=== PATIENT | male | born 1970 | race Caucasian/White ===

== ENCOUNTER 2024-06-09 14:44 | Emergency (ER) | payer MEDICAID, SELFPAY ==
[2024-06-09 14:51] VITALS: BP 156/95; PULSE 86; TEMP 36.7; O2SAT 97; BMI 27.4
--- NOTE | 2024-06-09 15:07 | ED_ITS ---
HPI - URI/Sore Throat General Chief Complaint: Upper Respiratory Infection Stated Complaint: FLU SYMPTOMS Time Seen by Provider: 06/09/24 14:49 Source: patient Limitations: no limitations History of Present Illness HPI Narrative: Patient is a 54-year-old male with no major medical problems who presents to the ER for continued influenza symptoms. He was diagnosed 3 days ago at urgent care with influenza A. He states he has been sick for the last 6 days. He does not have an appetite and has not been eating very much but he has been drinking fluids with no vomiting. Diarrhea several days ago has now resolved. He reports body aches, cough and congestion. He was prescribed Tamiflu which he has been taking but states he does not feel it has made his symptoms any better. Related Data Home Medications ?Medication ?Instructions ?Recorded ?Confirmed oseltamivir 75 mg capsule 75 mg PO DAILY 06/09/24 06/09/24 Previous Rx's ?Medication ?Instructions ?Recorded lvpwlffnunetoby-xwippoaazqqepyq-NV 10 ml PO Q6H PRN cold symptoms 06/09/24 2 mg-30 mg-10 mg/5 mL oral syrup #200 mL (Bromfed DM) ondansetron 4 mg disintegrating 4 mg PO Q6H PRN nausea and 06/09/24 tablet vomiting #12 tabs Allergies Allergy/AdvReac Type Severity Reaction Status Date / Time No Known Drug Allergies Allergy Verified 06/09/24 14:51 Review of Systems ROS Constitutional Reports: fever and chills Ears, nose, mouth, and throat Reports: throat pain and nasal congestion Respiratory Reports: cough; Denies: shortness of breath Gastrointestinal Reports: nausea and diarrhea; Denies: vomiting Integumentary/Breast Denies: rash Hematologic/Lymphatic Denies: easy bruising or easy bleeding PFSH [facility] Social History Little interest or pleasure in doing things: not at all Feeling down, depressed, or hopeless: not at all Exam Narrative Exam Narrative: Gen.: Awake, alert, in no distress Head: Normocephalic, atraumatic ENT: Moist mucous membranes, bilateral TMs clear, no pharyngeal erythema with uvula midline. Normal speech. Respiratory: No respiratory distress, lungs clear bilaterally, no wheezing or rhonchi. No coughing noted Cardio: Regular rate and rhythm Gastrointestinal: Abdomen is soft, nondistended and nontender to palpation Extremities: Moves extremities equally Psych: Normal mood and affect Neuro: No focal neuro deficit Skin: Warm, dry, intact Constitutional Vital Signs, click to edit/add: Last Vital Signs Temp 98.1 F 06/09/24 14:51 Pulse 86 06/09/24 14:51 Resp 20 06/09/24 14:51 BP 156/95 H 06/09/24 14:51 Pulse Ox 97 06/09/24 14:51 O2 Del Method Room Air 06/09/24 14:51 Course Vital Signs Vital signs: Vital Signs Temperature 98.1 F 06/09/24 14:51 Pulse Rate 86 06/09/24 14:51 Respiratory Rate 20 06/09/24 14:51 Blood Pressure 156/95 H 06/09/24 14:51 Pulse Oximetry 97 06/09/24 14:51 Oxygen Delivery Method Room Air 06/09/24 14:51 Temperature 98.1 F 06/09/24 14:51 Pulse Rate 86 06/09/24 14:51 Respiratory Rate 20 06/09/24 14:51 Blood Pressure 156/95 H 06/09/24 14:51 Pulse Oximetry 97 06/09/24 14:51 Oxygen Delivery Method Room Air 06/09/24 14:51 MDM - URI/Sore Throat MDM Narrative Medical decision making narrative: This patient is in no distress with stable vital signs. He is experiencing the expected duration of influenza course of illness. He was given education and reassurance that the Tamiflu does not treat his symptoms but might shorten the course of his illness by 36 to 48 hours. He should increase fluids, continue Motrin and Tylenol. He was given Bromfed-DM and Zofran for symptoms at home as well as Decadron in the ER for sore throat. He has already been swabbed negative for COVID and strep. Work note provided. Return to the ER if symptoms change or worsen. SUPERVISED APC VISIT, PHYSICIAN ATTESTATION: Based on the medical record the care appears appropriate. ? Medical Records Attestation: I reviewed the patient's medical records. Discharge Plan Discharge Chief Complaint: Upper Respiratory Infection Clinical Impression: Influenza Patient Disposition: Home, Self-Care Time of Disposition Decision: 15:05 Condition: Good Prescriptions / Home Meds: New cubbwefggyouwow-cprmfhbik-TL [Bromfed DM] 2-30-10 mg/5 mL syrup 10 ml PO Q6H PRN (Reason: cold symptoms) Qty: 200 0RF ondansetron 4 mg tablet,disintegrating 4 mg PO Q6H PRN (Reason: nausea and vomiting) Qty: 12 0RF No Action oseltamivir 75 mg capsule 75 mg PO DAILY Print Language: German Instructions: Influenza (ED) Referrals: Physician,Non-Staff, MD [Primary Care Provider] - 1 week
[2024-06-09] MEDS: DEXAMETHASONE SOD PHOS 10 MG/ML VIAL PO (15:19)
== END 2024-06-09 15:32 | disposition home or self-care (01) ==
PROVIDERS: Emergency Provider Emergency Medicine
DX: J11.1 Influenza due to unidentified influenza virus with other respiratory manifestations (principal)
CPT/HCPCS: 99283; J1100

== ENCOUNTER 2024-09-05 17:06 | Emergency (ER) | payer MEDICAID, SELFPAY ==
[2024-09-05 17:12] VITALS: BP 169/95; PULSE 68; TEMP 36.5; O2SAT 99; BMI 24.3
[2024-09-05] MEDS: ADACEL DIPH,PERTUSS(ACELL),TET VAC/PF 0.5 ML ADULT SYRINGE IM (17:29)
--- NOTE | 2024-09-05 17:30 | ED_ITS ---
HPI HPI - General Adult General Chief complaint: Skin/Abscess/Foreign Body Stated complaint: right hand middle finger injury Time Seen by Provider: 09/05/24 17:08 Source: patient Mode of arrival: walk-in History of Present Illness HPI narrative: 54-year-old male presents for piece of metal in his right third finger. 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 It has been more than 10 years since his last tetanus shot. No other injury was sustained. No purulent drainage. Related Data Home Medications ?Medication ?Instructions ?Recorded ?Confirmed alprazolam 0.25 mg tablet 0.25 mg PO DAILY PRN anxiety 09/05/24 09/05/24 Allergies Allergy/AdvReac Type Severity Reaction Status Date / Time No Known Drug Allergies Allergy Verified 09/05/24 17:12 Opioid HPI Opioid Management Most Recent Opioid Data: No Data to Display Review of Systems ROS Narrative A ten point review of systems is negative except as noted above. PFSH PFSH Social History Little interest or pleasure in doing things: not at all Feeling down, depressed, or hopeless: not at all Exam Narrative Exam Narrative: Nurses note and vital signs reviewed and patient is not hypoxic. General: The patient appears well and in no apparent distress. Patient is resting comfortably on cart. Skin: Warm, dry, no pallor noted. There is no rash noted. Head: Normocephalic, atraumatic Eye: Normal conjunctiva, no drainage Ears, Nose, Mouth, and Throat: oral mucosa is moist. Nares patent. Cardiovascular: Regular Rate and Rhythm Respiratory: Patient is in no distress, no accessory muscle use Back: non-tender GI: Soft and nontender Musculoskeletal: On the distal finger pad of the right third finger is a punctate dark area. Neurological: A&O, normal speech Psychiatric: Cooperative Constitutional Vital Signs, click to edit/add: Last Vital Signs Temp 97.7 F 09/05/24 17:12 Pulse 68 09/05/24 17:12 Resp 20 09/05/24 17:12 BP 169/95 H 09/05/24 17:12 Pulse Ox 99 09/05/24 17:12 O2 Del Method Room Air 09/05/24 17:12 Course Vital Signs Vital signs: Vital Signs Temperature 97.7 F 09/05/24 17:12 Pulse Rate 68 09/05/24 17:12 Respiratory Rate 20 09/05/24 17:12 Blood Pressure 169/95 H 09/05/24 17:12 Pulse Oximetry 99 09/05/24 17:12 Oxygen Delivery Method Room Air 09/05/24 17:12 Temperature 97.7 F 09/05/24 17:12 Pulse Rate 68 09/05/24 17:12 Respiratory Rate 20 09/05/24 17:12 Blood Pressure 169/95 H 09/05/24 17:12 Pulse Oximetry 99 09/05/24 17:12 Oxygen Delivery Method Room Air 09/05/24 17:12 Medical Decision Making MDM Narrative Medical decision making narrative: The following procedure was performed by me. Finger block applied to the right middle finger resulting in complete skin anesthesia. The area was prepped with Betadine x 3 and draped sterilely. A finger tourniquet was applied. Using a #11 blade the superficial layers of the skin were opened and using curved hemostats the foreign body was removed in its entirety. The finger tourniquet was then removed. He tolerated the procedure well. Initial x-ray on my interpretation shows metallic foreign body. Repeat after procedure shows no foreign body. Tetanus status was updated. Treatment diagnosis and follow-up were discussed with the patient Differential Diagnosis Differential Diagnosis: Foreign body Imaging Data Finger x-rays: My impression: Initial x-ray shows foreign body, subsequent shows it has been removed. Discharge Plan Discharge Chief Complaint: Skin/Abscess/Foreign Body Clinical Impression: Foreign body finger Patient Disposition: Home, Self-Care Time of Disposition Decision: 18:04 Condition: Good Mode of Transportation: Private Vehicle Prescriptions / Home Meds: No Action alprazolam 0.25 mg tablet 0.25 mg PO DAILY PRN (Reason: anxiety) Print Language: Upper Sorbian Instructions: Soft Tissue Foreign Body (ED) Referrals: Physician,Non-Staff, MD [Primary Care Provider] - 1 week
[2024-09-05] MEDS: LIDOCAINE HCL 1% 100 MG/10 ML MDV INJ (17:43)
== END 2024-09-05 18:28 | disposition home or self-care (01) ==
PROVIDERS: Emergency Provider Emergency Medicine
DX: S60.452A Superficial foreign body of right middle finger, initial encounter (principal); X58.XXXA Exposure to other specified factors, initial encounter; Z23 Encounter for immunization
CPT/HCPCS: 10120; 73130; 73140; 90471; 90715; 99284